=== PATIENT | male | born 1975 | race Caucasian/White ===

== ENCOUNTER 2017-03-07 13:48 | Emergency (ER) | payer OTHER ==
[~2017-03-07] VITALS: Ht 162.6 cm; Wt 65.0 kg
[2017-03-07] MEDS: IBUPROFEN 600MG TABLET PO ONE (15:10)
[2017-03-07] MEDS: HYDROCODONE/ACETAMINOPHEN 5/325MG TABLET PO ONE (15:10)
[2017-03-07 16:50] VITALS: BP 135/78
== END 2017-03-07 16:55 | disposition home or self-care (01) ==
LOC: ER 13:48
DX: S93.401A Sprain of unspecified ligament of right ankle, initial encounter (principal); W19.XXXA Unspecified fall, initial encounter; Y93.89 Activity, other specified; Y92.89 Other specified places as the place of occurrence of the external cause; Y99.8 Other external cause status
CPT/HCPCS: 73610; 73630; 99284; Z7610